=== PATIENT | male | born 1965 | race African-American/Black ===

== ENCOUNTER 2018-05-05 15:48 | Emergency (ER) | payer OTHER ==
[~2018-05-05] VITALS: Ht 193 cm; Wt 129.3 kg
[2018-05-05] MEDS ORDERED: NAPROSYN500 MG PO (16:54)
[2018-05-05] MEDS ORDERED: HYDROCODONE-AP1 EAC6 PO (16:54)
[2018-05-05 17:53] VITALS: BP 121/76
== END 2018-05-05 17:55 | disposition home or self-care (01) ==
LOC: ER 15:48
DX: S83.8X2A Sprain of other specified parts of left knee, initial encounter (principal); I10 Essential (primary) hypertension; E11.9 Type 2 diabetes mellitus without complications; Z88.1 Allergy status to other antibiotic agents; Z90.49 Acquired absence of other specified parts of digestive tract; Z88.6 Allergy status to analgesic agent; W00.0XXA Fall on same level due to ice and snow, initial encounter; Y92.89 Other specified places as the place of occurrence of the external cause; Y99.0 Civilian activity done for income or pay; Y99.8 Other external cause status